=== PATIENT | female | born 1955 | race Caucasian/White ===

== ENCOUNTER 2023-09-10 14:44 | Emergency (ER) | payer MEDICARE, BC, SELFPAY ==
[2023-09-10 14:53] VITALS: BP 151/93
--- NOTE | 2023-09-10 18:31 | ED.GENMED ---
History of Present Illness
General
Chief Complaint: Headache
Source: patient and spouse
Time Seen by Provider: 09/10/23 16:30
Travel History
Have you had any contact with someone who has COVID-19?: No
Do you have any symptoms of coronavirus? Fever > 100 degrees, chills, cough, shortness of breath, sore throat, loss of taste or smell, muscle aches, or headache?: No
History of Present Illness
History of Present Illness:
68-year-old female who presents with complaint that the microchip in her neck. The patient states it sometimes swells in that area and sometimes gives her headache. She is here requesting that 'they' turn it 'down'. Patient states that she used
to work for the [employer] and it was placed many years ago. Significant other is also in the room requesting help with the microchip. They report that when people are nearby with cell phones it sometimes causes her to have loud sounds. The patient is
deaf. Patient states sometimes she gets shooting pain in the area. She states she never remembers it being implanted but was told by somebody that they were implanting microchips in [employer]. The patient states that she does not really
care that it is there except that sometimes it bothers her. She states that sometimes she can hear voices but denies that they are hallucinations.
She reports she has off-and-on headaches for more than a month
Past History
Past History
ED Past Medical History: Other (Deafness, prior cervical spine surgery)
ED Past Surgical History: Orthopedic
Phy Exam
Physical Exam
Physical Exam:
CONSTITUTIONAL Patient alert and oriented to person, place and time. Well-appearing. Vital signs reviewed.
HEAD atraumatic, normocephalic.
EYES eyelids normal to inspection, Pupils equally round and reactive to light, Extraocular muscles intact, Conjunctiva normal, Sclera normal.
NECK normal range of motion, Trachea midline, no jugular venous distention.
RESPIRATORY CHEST No respiratory distress noted, Chest expansion equal, Bilateral breath sounds clear.
CARDIOVASCULAR regular rate and rhythm, Heart sounds normal.
ABDOMEN abdomen nontender, Bowel sounds normal. No distention.
BACK normal inspection, no obvious deformities
UPPER EXTREMITY range of motion normal, Motor strength normal, no cyanosis, no edema.
LOWER EXTREMITY range of motion normal, Motor strength normal, no cyanosis, no edema.
NEURO Speech normal, No focal motor deficits, [place] coma scale 15, Memory normal, deaf but able to read lips well and communicate
SKIN skin warm, dry, and normal in color.
Course
Orders/Labs/Results
Orders:
Orders
09/10/23 16:58
Neck Soft Tissue [CR Soft Tissue Neck ] Urgent
Comment:
Reason For Exam: concern for FB, AP study please
09/10/23 18:31
CT Head W/o Iv Contrast Urgent
Comment:
Reason For Exam: OVIEDO
09/10/23 18:58
Acetaminophen [Tylenol] 1,000 mg PO NOW STA
Vital Signs
Initial and Last Documented VS:
Initial Vital Signs
Temp Pulse Resp BP Pulse Ox
98.6 F 81 18 151/93 97
09/10/23 14:53 09/10/23 14:53 09/10/23 14:53 09/10/23 14:53 09/10/23 14:53
Last Documented Vital Signs
Temp Pulse Resp BP Pulse Ox
98.6 F 77 16 176/89 97
09/10/23 14:53 09/10/23 18:48 09/10/23 18:48 09/10/23 18:48 09/10/23 18:48
MDM/Problems Addressed
MDM/Problems Addressed:
Delusions, headache
*Radiology
Radiology exam reviewed: preliminary read by ED provider ( no FB on films)
*Pulse Oximetry
Patient hypoxic: no
*Critical Care Note
Total Time (30-74mins, 75-104mins- exclusive of procedures): Not Applicable
Data Reviewed
Source: patient and significant other
Further Testing Considered But Not Given:
Consider crisis consult but patient has had the same thought for many years and seems stable and fixed in her delusion. I did recommend outpatient follow-up. Unfortunately her significant other seems to propagate the delusion as she has convinced
him of the microchip implantation. The patient was shown films but states that maybe there is a 'cover' over the chip or that 'they' are using AI to change the images
Patient Management
Escalation/DeEscalation of care consider admission/obs:
Appears well. Meningioma noted by RADS. Do not suspect playing a role in her delusion but certainly may need some follow-up. Recommended outpatient follow-up
ED Attending Note
-
Portions of this chart may have been created with voice recognition software.� Occasional wrong word or��sound alike� substitutions may have occurred due to the inherent limitations of voice recognition software.
Discharge Plan
Departure
Patient Disposition: Home (Routine Discharge)
Date of Disposition: 09/10/23
Time of Disposition: 20:13
Patient with high blood pressure during this ER visit?: Yes
Discharge Problem:
Delusion, Meningioma
Instructions: Headache, Adult (DC), BLOOD PRESSURE
Referrals:
Kraig Justice DO [Family Provider] -
Floridalma Hardy MD [Active] -
Activity Restrictions/Additional Instructions:
Meningioma
Please see your doctor next 3 to 5 days for follow-up and reevaluation. Please see neurosurgery in the next 2 weeks for follow-up and reevaluation of your CAT scan. Return immediately for changes in mentation, hearing voices, delusions or any
other concerns
Interventions
Interventions:
*Risk Screen - Suicide Last Done: 09/10/23 14:53
*General Assessment Last Done: 09/10/23 15:35
*Neglect/Abuse Screening Last Done: 09/10/23 14:53
ED- Fall Risk Assessment Last Done: 09/10/23 17:16
*ED COVID-19 Vaccine History Last Done: 09/10/23 14:53
*Nursing Disposition Last Done: 09/10/23 21:22
ED- Neurological Assessment Last Done: 09/10/23 17:16
Discharge Date and Time
Discharge Date/Time: 09/10/23 21:23
[2023-09-10 18:48] VITALS: BP 176/89
[2023-09-10] MEDS: TYLENOL 1000 MG PO (19:09)
[2023-09-10 19:12] VITALS: BMI 21.6
== END 2023-09-10 21:23 | disposition home or self-care (01) ==
LOC: EMR 14:44
PROVIDERS: EMERGENCY PHYSICIAN Emergency Medicine; FAMILY PHYSICIAN Internal Medicine
DX: F22 Delusional disorders (principal); D32.9 Benign neoplasm of meninges, unspecified; R51.9 Headache, unspecified; H91.90 Unspecified hearing loss, unspecified ear
CPT/HCPCS: 99284; 70360; 70450

== ENCOUNTER 2023-10-05 20:06 | Emergency (ER) | payer MEDICARE, BC, SELFPAY ==
[2023-10-05 20:08] VITALS: BP 173/103
[2023-10-05 20:11] VITALS: BP 173/107
[2023-10-05 20:19] VITALS: BMI 22.5
[2023-10-05 20:27] VITALS: BP 183/85
--- NOTE | 2023-10-05 20:34 | ED.GENMED ---
History of Present Illness
General
Chief Complaint: Headache
Source: patient
Time Seen by Provider: 10/05/23 20:22
Travel History
Have you had any contact with someone who has COVID-19?: No
Do you have any symptoms of coronavirus? Fever > 100 degrees, chills, cough, shortness of breath, sore throat, loss of taste or smell, muscle aches, or headache?: No
History of Present Illness
History of Present Illness:
This patient is a 68-year-old female presents emergency department with complaints of hearing a 'big sound with surrounding me', followed by headache with pain that radiates to her neck and upper chest. Patient states that this happened at around
715 tonight. Since then, the pain is much better and she describes just residual 'leftover' pain. She denies associated diaphoresis, visual changes, numbness, tingling, focal weakness, fever, chills, nausea, vomiting, abdominal pain, back pain, or
other complaints.
Past History
Past History
ED Past Medical History: Other (Deafness, prior cervical spine surgery)
ED Past Surgical History: Orthopedic
Phy Exam
Physical Exam
Physical Exam:
GENERAL: Alert , in no apparent distress
EYE: pupils equal and reactive, EOMI, no photophobia, nystagmus
NECK: Supple, no significant adenopathy, no bruit.
ENT: o/p clr, mmm.
CARDIAC: Regular rate and rhythm .
LUNGS: Clear breath sounds bilaterally, no acute respiratory distress, no wheezes/rales/rhonchi
ABDOMEN: Soft, without focal tenderness, no r/g, no cvat
NEUROLOGICAL: Alert and oriented, no focal neuro deficits, [id number] normal, motor 5 out of 5, sensory intact, cranial nerves II through XII intact with the exception of baseline deafness although patient is able to read lips quite well
SKIN: Warm and dry, skin intact.
MUSCULOSKELETAL: No edema, well perfused.
PSYCH: Normal and appropriate interaction.
Course
Orders/Labs/Results
Orders:
Orders
10/05/23 20:13
EKG [Electrocardiogram (*1)] Urgent
Reason for Study: Fatigue / Weakness
10/05/23 20:14
EKG- Treatment ONCE
10/05/23 20:22
CT Head W/o Iv Contrast Stat
Comment:
Reason For Exam: manning
10/05/23 20:45
CBC/No Diff [Complete Blood Count/No Diff] Stat
CMP [Comprehensive Metabolic Panel] Stat
10/05/23 21:55
Morphine Sulfate 4 mg IV NOW STA
10/05/23 22:04
CT Head & Neck Angio W/wo IV Urgent
Comment:
Reason For Exam: severe head/neck pain
Abnormal Lab Results
10/05/23
20:45
MPV 10.5 H fL
(7.4-10.4)
Sodium 131 L mmol/L
(135-145)
BUN 21 H mg/dl
(7-17)
Glucose 129 H mg/dl
(70-99)
10/05/23 20:45
10/05/23 20:45
Vital Signs
Initial and Last Documented VS:
Initial Vital Signs
Pulse Resp BP Pulse Ox
88 20 173/103 97
10/05/23 20:08 10/05/23 20:08 10/05/23 20:08 10/05/23 20:08
Last Documented Vital Signs
Pulse Resp BP Pulse Ox
87 30 183/85 96
10/05/23 20:30 10/05/23 20:30 10/05/23 20:27 10/05/23 20:27
*Critical Care Note
Total Time (30-74mins, 75-104mins- exclusive of procedures): Not Applicable
Update Note
Update Note:
Patient presents to the Emergency Department with
Number and Complexity of Problems Addressed at the Encounter
� Chronic conditions affecting care:
� Acute Exacerbation and/or Progression of Chronic Illness:
� Differential Diagnosis includes: But not limited to SAH, tension headache, etc.
Amount and/or Complexity of Data to be Reviewed and Analyzed
� I performed an independent evaluation of and my interpretation is:
EKG: Read by me normal sinus rhythm, no acute ischemia normal axis
CT:In the anterolateral left frontal region, extra-axial mass, which very likely represents a meningioma, unchanged from CT examination of September 10, 2023.
No evidence for associated mass effect or adjacent white matter edema.
No evidence for acute intracranial abnormality.
cta Normal appearance of the common carotid arteries, carotid bulbs, and internal carotid arteries bilaterally, with no evidence for dissection or significant narrowing.
There is no evidence for dissection of the vertebral or basilar arteries.
There is no evidence for intracranial aneurysm.
Left anterolateral frontal meningioma, as seen on earlier unenhanced CT of the head.
Xrays:
Laboratory Studies: Generally unremarkable
Other:
� Review of other/old records reveals: August 2023 patient presented the emergency department with a complaint of a microchip in her neck that sometimes swells and gives her headache. Today, patient states that today symptoms
are very similar to what she had in August.
� Clinical information was obtained by an independent historian:
� Prescriptions/Medications Considered but not given:
� Further testing considered but not performed:
Risk of Complications and/or Morbidity or Mortality of Patient Management
� Social determinants of health affecting care:
� Discussion with other providers (PCP, Hospitalists, Consultants, etc):
� Escalation of care including admission/observation vs risk of discharge considered: See above regarding prior visit for similar symptoms including loud sounds, headache, etc. The somewhat abrupt nature would make 1 consider
acute vascular process such as SAH, dissection, etc. however physical exam extremely reassuring. CT head pending.
Head CT and CTA unremarkable for acute process, no dissection noted. She does have a meningioma noted which I do not suspect accounts for her symptoms and is unchanged from prior. Status post pain medication patient is very comfortable and would
like to go home. Interestingly when reviewing her records and in speaking with the patient, she again describes feeling a loud noise and the association with her perception that she has an embedded microchip. Will discharge back to [facility]
Living given unremarkable workup here. Patient does not have other delusions etc. that would make me concerned for the need for an acute workup here in the ER
ED Attending Note
-
Portions of this chart may have been created with voice recognition software.� Occasional wrong word or��sound alike� substitutions may have occurred due to the inherent limitations of voice recognition software.
Discharge Plan
Departure
Patient Disposition: Home (Routine Discharge)
Date of Disposition: 10/05/23
Time of Disposition: 23:31
Patient with high blood pressure during this ER visit?: Yes
Condition: Good
Discharge Problem:
Headache
Instructions: Headache, Adult (DC), BLOOD PRESSURE
Prescriptions:
No Action
atorvastatin [Lipitor] 20 mg Tablet
20 mg PO DAILY
Tylenol
500 mg PO Q6H PRN (Reason: pain)
lorazepam
0.5 mg PO TID PRN (Reason: anxiety)
Referrals:
Kraig Justice, [Family Provider] - Follow up in 2-3 days
Activity Restrictions/Additional Instructions:
PLEASE FOLLOW UP WITH YOUR DOCTOR REGARDING YOUR TESTING HERE (SEE ATTACHED). IF YOU DEVELOP CHEST PAIN, TROUBLE BREATHING, NUMBNESS, TINGLING, WEAKNESS, INCREASING/NEW/PERSISTENT HEADACHE, OR OTHER WORRISOME SIGNS, GO TO THE ER IMMEDIATELY!
Interventions
Interventions:
*Nursing Disposition Last Done: 10/06/23 00:17
ED- Cardiac Assessment Last Done: 10/05/23 21:02
ED- Neurological Assessment Last Done: 10/05/23 21:02
Discharge Date and Time
Discharge Date/Time: 10/06/23 00:18
[2023-10-05 20:53] LABS: Hematocrit 40.1 % (37.0-47.0); Mean Corp Hgb Conc. 34.9 g/dL (33.0-37.0); Mean Corpuscular Hgb 30.4 pg (27.0-31.0); Mean Platelet Volume 10.5 fL (7.4-10.4); Platelet Count 212 10^3/uL (130-400); Red Blood Cell Count 4.61 10^6/uL (4.20-5.40); Red Cell Dist. Width 12.7 % (11.5-14.5); White Blood Cell Count 6.4 10^3/uL (4.8-10.8)
[2023-10-05 21:03] LABS: ALT (SGPT) 26 U/L (0-35); AST (SGOT) 24 U/L (14-36); Albumin 4.1 g/dl (3.5-5.0); Alkaline Phosphatase 118 U/L (38-126); Blood Urea Nitrogen 21 mg/dl (7-17); Calcium 9.4 mg/dl (8.4-10.2); Carbon Dioxide 28 mmol/L (22-30); Chloride 100 mmol/L (98-107); Estimated Creatinine Clearance 79 ml/min; Glucose 129 mg/dl (70-99); Sodium 131 mmol/L (135-145); Total Bilirubin 0.7 mg/dl (0.2-1.3); Total Protein 6.3 g/dl (6.3-8.2); eGFR > 60.00
[2023-10-05] MEDS: MORPHINE SULFATE 4 MG IV (21:58)
== END 2023-10-06 00:18 | disposition home or self-care (01) ==
LOC: EMR 20:06
PROVIDERS: EMERGENCY PHYSICIAN Emergency Medicine; FAMILY PHYSICIAN Internal Medicine
DX: R51.9 Headache, unspecified (principal)
CPT/HCPCS: 99284; 96374; 70450; 70496; 70498; 80053; 85027; 93005; Q9967

== ENCOUNTER → 2023-10-21 12:36 | Outpatient (REF) | payer MEDICARE, BC, SELFPAY ==
[2023-10-21 14:06] LABS: % Basophils 1.1 % (0-2); % Eosinophils 3.2 % (0-6); % Immature Granulocytes 0.2 % (0-0.5); % Lymphocytes 27.4 % (20.5-51.1); % Monocytes 13.3 % (1.7-9.3); % Neutrophils 54.8 % (42.2-75.2); Absolute Basophils 0.1 10^3/uL (0-0.2); Absolute Eosinophils 0.2 10^3/uL (0-0.7); Absolute Lymphocytes 1.5 10^3/uL (1.2-3.4); Absolute Monocytes 0.7 10^3/uL (0.1-0.6); Absolute Neutrophils 2.9 10^3/uL (1.4-6.5); Hematocrit 42.4 % (37.0-47.0); Hemoglobin 14.1 g/dL (12.0-16.0); Mean Corp Hgb Conc. 33.3 g/dL (33.0-37.0); Mean Corpuscular Hgb 30.4 pg (27.0-31.0); Mean Corpuscular Volume 91.4 fL (81.0-99.0); Mean Platelet Volume 11.2 fL (7.4-10.4); Nucleated Red Blood Cells % 0 %; Platelet Count 221 10^3/uL (130-400); Red Blood Cell Count 4.64 10^6/uL (4.20-5.40); Red Cell Dist. Width 12.9 % (11.5-14.5); White Blood Cell Count 5.3 10^3/uL (4.8-10.8)
[2023-10-21 14:27] LABS: ALT (SGPT) 26 U/L (0-35); AST (SGOT) 24 U/L (14-36); Albumin 4.3 g/dl (3.5-5.0); Alkaline Phosphatase 72 U/L (38-126); Blood Urea Nitrogen 19 mg/dl (7-17); Calcium 9.1 mg/dl (8.4-10.2); Carbon Dioxide 28 mmol/L (22-30); Chloride 96 mmol/L (98-107); Glucose 79 mg/dl (70-99); HDL Cholesterol 87 mg/dl; LDL Cholesterol, Calculated 93 mg/dl; Potassium 4.1 mmol/L (3.5-5.1); Sodium 132 mmol/L (135-145); Total Cholesterol 190 mg/dl (50-199); Total Protein 6.5 g/dl (6.3-8.2); Triglyceride 51 mg/dl (10-149); Very Low Density Lipoprotein 10 mg/dl (0-30); eGFR > 60.00
[2023-10-21 14:48] LABS: TSH Reflex To Free T4 4.94 uIU/ml (0.47-4.68)
[2023-10-21 15:01] LABS: Glycohemoglobin (HgbA1c) 5.8 % (4.0-5.6)
[2023-10-21 15:16] LABS: Free T4 1.15 ng/dl (0.78-2.19)
== END ==
LOC: OLABWIL 12:36
PROVIDERS: ATTENDING PHYSICIAN Internal Medicine
DX: Z13.6 Encounter for screening for cardiovascular disorders (principal); Z13.1 Encounter for screening for diabetes mellitus; Z68.20 Body mass index [BMI] 20.0-20.9, adult; F41.9 Anxiety disorder, unspecified; E83.10 Disorder of iron metabolism, unspecified
CPT/HCPCS: 36415; 80053; 80061; 83036; 84439; 84443; 85025

== ENCOUNTER 2023-11-05 08:46 | Emergency (ER) | payer MEDICARE, BC, SELFPAY ==
[2023-11-05] VITALS (9 sets, daily range): BP systolic 120–147; BP diastolic 68–125; BMI 21.3
[2023-11-05] MEDS: ZOFRAN 4 MG IV ×2 (09:19→15:35)
[2023-11-05] MEDS: MORPHINE SULFATE 4 MG IV (09:21)
--- NOTE | 2023-11-05 09:24 | ED.GENMED ---
History of Present Illness
<Gab Rincon, DO - Last Filed: 11/05/23 13:57>
General
Chief Complaint: Headache
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
Exam Limitations: other ([employer] Card Changer used, but continues to be difficult to get all information from patient)
Time Seen by Provider: 11/05/23 08:52
Nursing documentation reviewed up to this point in time: agreed with
Travel History
Have you had any contact with someone who has COVID-19?: No
Do you have any symptoms of coronavirus? Fever > 100 degrees, chills, cough, shortness of breath, sore throat, loss of taste or smell, muscle aches, or headache?: No
History of Present Illness
History of Present Illness:
68-year-old female presents emergency department complaining of headache with vomiting today. She feels like there is a loud noise around her. This is similar to her previous headache.
Past History
<Gab Rincon, DO - Last Filed: 11/05/23 13:57>
Past History
ED Past Medical History: Other (Deafness, prior cervical spine surgery, meningioma)
ED Past Surgical History: Orthopedic
Social History
Tobacco: Non-smoker
Alcohol: None
Drug: None
Personal:
Living: with family
Review of Systems
<Gab Rincon, DO - Last Filed: 11/05/23 13:57>
Review of Systems
Allergies reviewed?: Yes
All Other Systems: Not applicable
Constitutional: Reports no symptoms
EENT: Reports no symptoms
Respiratory: Reports no symptoms
Cardiac: Reports no symptoms
ABD/GI: Reports nausea and vomiting; Denies abdominal pain
: Reports no symptoms
Musculoskeletal: Reports no symptoms
Skin: Reports no symptoms
Neurological: Reports headache
Endocrine: Reports no symptoms
Hematologic/Lymphatic: Reports no symptoms
Psychiatric: Reports no symptoms
Phy Exam
<Gab Rincon, DO - Last Filed: 11/05/23 13:57>
Physical Exam
Physical Exam:
Physical Exam
General: no apparent distress, not acutely ill
Neck: supple. no meningeal signs. normal posterior pharynx
Heart: s1/s2 regular rate and rhythm, no murmur. equal radial
pulses.,
HEENT: Pupils equal round reactive to light, EOMI, deaf
Lungs: no acute respiratory distress. clear bilaterally
Abdomen: normal bowel sounds. not tender. no CVAT
Neuro: alert and oriented. no focal neurological deficits cranial nerves II through XII intact
Skin: no rash
Psychiatric: well kept. interactive and cooperative
Extremities: no edema. no calf tenderness. negative homans. good distal pulses
Course
<Gab Rincon, DO - Last Filed: 11/05/23 13:57>
Orders/Labs/Results
Orders:
Orders
11/05/23 09:11
Cardiac Monitoring- Treatment ONCE
IV Insert/Care/Rem.- Treatment PRN
Morphine Sulfate 4 mg IV NOW STA
Ondansetron Injectable [Zofran] 4 mg IV NOW STA
11/05/23 09:25
Complete Blood Count/With Diff Urgent
Comprehensive Metabolic Panel Urgent
11/05/23 12:54
Ketorolac [Toradol] 15 mg IV NOW STA
11/05/23 13:54
0.9% Sodium Chloride 500 ml [Nss] 500 ml IV BOLUS
Diphenhydramine [Benadryl] 25 mg IV NOW STA
Metoclopramide [Reglan] 10 mg IV NOW STA
11/05/23 15:19
HYDROmorphone [Dilaudid] 0.5 mg IV NOW STA
11/05/23 15:22
Ondansetron Injectable [Zofran] 4 mg .ROUTE .STK-MED ONE
11/05/23 15:34
Ondansetron Injectable [Zofran] 4 mg IV NOW STA
Abnormal Lab Results
11/05/23
09:25
WBC 13.7 H 10^3/uL
(4.8-10.8)
MCH 31.2 H pg
(27.0-31.0)
MPV 10.5 H fL
(7.4-10.4)
Absolute Neuts (auto) 11.9 H 10^3/uL
(1.4-6.5)
Absolute Lymphs (auto) 0.8 L 10^3/uL
(1.2-3.4)
Absolute Monos (auto) 0.9 H 10^3/uL
(0.1-0.6)
Neutrophils % 86.9 H %
(42.2-75.2)
Lymphocytes % 5.6 L %
(20.5-51.1)
Sodium 132 L mmol/L
(135-145)
Chloride 95 L mmol/L
(98-107)
BUN 23 H mg/dl
(7-17)
Glucose 113 H mg/dl
(70-99)
Total Bilirubin 1.6 H mg/dl
(0.2-1.3)
Total Protein 6.2 L g/dl
(6.3-8.2)
11/05/23 09:25
11/05/23 09:25
Vital Signs
Initial and Last Documented VS:
Initial Vital Signs
Temp Pulse Resp BP Pulse Ox
98.0 F 91 16 145/84 98
11/05/23 08:48 11/05/23 08:48 11/05/23 08:48 11/05/23 08:48 11/05/23 08:48
Last Documented Vital Signs
Temp Pulse Resp BP Pulse Ox
98.0 F 78 15 142/79 97
11/05/23 08:48 11/05/23 15:00 11/05/23 15:00 11/05/23 13:00 11/05/23 15:00
<Huan Tovar MD - Last Filed: 11/05/23 17:09>
Orders/Labs/Results
Orders:
Orders
11/05/23 09:11
Cardiac Monitoring- Treatment ONCE
IV Insert/Care/Rem.- Treatment PRN
Morphine Sulfate 4 mg IV NOW STA
Ondansetron Injectable [Zofran] 4 mg IV NOW STA
11/05/23 09:25
Complete Blood Count/With Diff Urgent
Comprehensive Metabolic Panel Urgent
11/05/23 12:54
Ketorolac [Toradol] 15 mg IV NOW STA
11/05/23 13:54
0.9% Sodium Chloride 500 ml [Nss] 500 ml IV BOLUS
Diphenhydramine [Benadryl] 25 mg IV NOW STA
Metoclopramide [Reglan] 10 mg IV NOW STA
11/05/23 15:19
HYDROmorphone [Dilaudid] 0.5 mg IV NOW STA
11/05/23 15:22
Ondansetron Injectable [Zofran] 4 mg .ROUTE .STK-MED ONE
11/05/23 15:34
Ondansetron Injectable [Zofran] 4 mg IV NOW STA
Abnormal Lab Results
11/05/23
09:25
WBC 13.7 H 10^3/uL
(4.8-10.8)
MCH 31.2 H pg
(27.0-31.0)
MPV 10.5 H fL
(7.4-10.4)
Absolute Neuts (auto) 11.9 H 10^3/uL
(1.4-6.5)
Absolute Lymphs (auto) 0.8 L 10^3/uL
(1.2-3.4)
Absolute Monos (auto) 0.9 H 10^3/uL
(0.1-0.6)
Neutrophils % 86.9 H %
(42.2-75.2)
Lymphocytes % 5.6 L %
(20.5-51.1)
Sodium 132 L mmol/L
(135-145)
Chloride 95 L mmol/L
(98-107)
BUN 23 H mg/dl
(7-17)
Glucose 113 H mg/dl
(70-99)
Total Bilirubin 1.6 H mg/dl
(0.2-1.3)
Total Protein 6.2 L g/dl
(6.3-8.2)
11/05/23 09:25
11/05/23 09:25
Vital Signs
Initial and Last Documented VS:
Initial Vital Signs
Temp Pulse Resp BP Pulse Ox
98.0 F 91 16 145/84 98
11/05/23 08:48 11/05/23 08:48 11/05/23 08:48 11/05/23 08:48 11/05/23 08:48
Last Documented Vital Signs
Temp Pulse Resp BP Pulse Ox
98.0 F 78 15 142/79 97
11/05/23 08:48 11/05/23 15:00 11/05/23 15:00 11/05/23 13:00 11/05/23 15:00
<Gab Rincon, DO - Last Filed: 11/05/23 13:57>
MDM/Problems Addressed
Differential Diagnosis Includes:
Migraine, viral syndrome
MDM/Problems Addressed:
68-year-old female with headache, nausea vomiting. Minimal improvement with morphine and Zofran. Will give another dose of IV fluids, Reglan, Benadryl, and reassess. If improved may discharge home, if patient persistent will admit for intractable
headache. Patient states there is a microchip in her neck, which has been imaged and there is no foreign body in her neck. This is a stable delusion.
Chronic conditions affecting care:
Deafness
Acute Exacerbation and/or Progression of Chronic Illness: Other (Headaches, meningioma)
<Gab Rincon DO - Last Filed: 11/05/23 13:57>
*Pulse Oximetry
Patient hypoxic: no
*EKG
Interpreted by ED Provider?: NA
*Electric Meter Tester Interpretation
Rate: Electric Meter Tester- N/A
*Critical Care Note
Total Time (30-74mins, 75-104mins- exclusive of procedures): Not Applicable
Data Reviewed
Review of Other/Old Records Reveals: Radiology Studies (Prior CT angiography no acute findings, meningioma)
<Huan Tovar MD - Last Filed: 11/05/23 17:09>
Update Note
Update Note:
Pt reports sig. improvement in symptoms after treatment. Otherwise, patient is afebrile, hemodynamically stable, and neurologically intact at time of discharge. Patient will be advised to follow-up with PCP or referred neurologist for further
evaluation and treatment.
ED Attending Note
<Gab Rincon DO - Last Filed: 11/05/23 13:57>
-
Portions of this chart may have been created with voice recognition software.� Occasional wrong word or��sound alike� substitutions may have occurred due to the inherent limitations of voice recognition software.
Discharge Plan
Departure
Patient Disposition: Home (Routine Discharge)
Date of Disposition: 11/05/23
Time of Disposition: 17:09
Patient with high blood pressure during this ER visit?: Yes
Discharge Problem:
Headache
Instructions: Migraines (DC), BLOOD PRESSURE
Prescriptions:
No Action
atorvastatin [Lipitor] 20 mg Tablet
20 mg PO DAILY
Tylenol
500 mg PO Q6H PRN (Reason: pain)
lorazepam
0.5 mg PO TID PRN (Reason: anxiety)
Referrals:
Tejas Kern MD [Active] -
UNKNOWN - PT DOES,NOT KNOW [Family Provider] -
Activity Restrictions/Additional Instructions:
As discussed, please follow-up with your primary care physician and/or referred neurologist for further evaluation and treatment.
Interventions
Interventions:
*General Assessment Last Done: 11/05/23 09:32
*Neglect/Abuse Screening Last Done: 11/05/23 09:32
*ED COVID-19 Vaccine History Last Done: 11/05/23 08:48
ED- Neurological Assessment Last Done: 11/05/23 10:39
[2023-11-05 09:40] LABS: % Basophils 0.3 % (0-2); % Eosinophils 0.7 % (0-6); % Immature Granulocytes 0.3 % (0-0.5); % Lymphocytes 5.6 % (20.5-51.1); % Monocytes 6.2 % (1.7-9.3); % Neutrophils 86.9 % (42.2-75.2); Absolute Eosinophils 0.1 10^3/uL (0-0.7); Absolute Lymphocytes 0.8 10^3/uL (1.2-3.4); Absolute Monocytes 0.9 10^3/uL (0.1-0.6); Absolute Neutrophils 11.9 10^3/uL (1.4-6.5); Hematocrit 40.4 % (37.0-47.0); Mean Corp Hgb Conc. 34.7 g/dL (33.0-37.0); Mean Corpuscular Hgb 31.2 pg (27.0-31.0); Mean Platelet Volume 10.5 fL (7.4-10.4); Nucleated Red Blood Cells % 0 %; Platelet Count 218 10^3/uL (130-400); Red Blood Cell Count 4.49 10^6/uL (4.20-5.40); White Blood Cell Count 13.7 10^3/uL (4.8-10.8)
[2023-11-05 09:50] LABS: ALT (SGPT) 28 U/L (0-35); AST (SGOT) 22 U/L (14-36); Albumin 4.1 g/dl (3.5-5.0); Alkaline Phosphatase 73 U/L (38-126); Blood Urea Nitrogen 23 mg/dl (7-17); Calcium 8.9 mg/dl (8.4-10.2); Carbon Dioxide 29 mmol/L (22-30); Chloride 95 mmol/L (98-107); Estimated Creatinine Clearance 82 ml/min; Glucose 113 mg/dl (70-99); Potassium 3.8 mmol/L (3.5-5.1); Sodium 132 mmol/L (135-145); Total Bilirubin 1.6 mg/dl (0.2-1.3); Total Protein 6.2 g/dl (6.3-8.2); eGFR > 60.00
[2023-11-05] MEDS: TORADOL 15 MG IV (13:26)
[2023-11-05] MEDS: REGLAN 10 MG IV (14:11)
[2023-11-05] MEDS: NSS 500 IV (14:11)
[2023-11-05] MEDS: BENADRYL 25 MG IV (14:13)
[2023-11-05] MEDS: DILAUDID 0.5 MG IV (15:35)
== END 2023-11-05 19:55 | disposition home or self-care (01) ==
LOC: EMR 08:46
PROVIDERS: EMERGENCY PHYSICIAN Emergency Medicine
DX: R51.9 Headache, unspecified (principal); R11.2 Nausea with vomiting, unspecified
CPT/HCPCS: 99283; 96374; 96375; 96376; 96361; 80053; 85025

== ENCOUNTER → 2023-12-26 06:34 | Day surgery (SDC) | payer MEDICARE, BC, SELFPAY | LOC: GI 06:34 | PROVIDERS: ATTENDING PHYSICIAN Internal Medicine Gastroenterology | DX: Z12.11 Encounter for screening for malignant neoplasm of colon (principal); R19.4 Change in bowel habit; K55.20 Angiodysplasia of colon without hemorrhage; K64.0 First degree hemorrhoids; D12.3 Benign neoplasm of transverse colon; D12.2 Benign neoplasm of ascending colon | CPT/HCPCS: 45385; 45381; 45380; 88305 ==

== ENCOUNTER → 2024-02-05 09:15 | Outpatient (REF) | payer MEDICARE, BC, SELFPAY ==
[2024-02-05 10:13] LABS: % Basophils 1.2 % (0-2); % Eosinophils 3.3 % (0-6); % Immature Granulocytes 0.2 % (0-0.5); % Lymphocytes 33.6 % (20.5-51.1); % Monocytes 14.4 % (1.7-9.3); % Neutrophils 47.3 % (42.2-75.2); Absolute Basophils 0.1 10^3/uL (0-0.2); Absolute Eosinophils 0.2 10^3/uL (0-0.7); Absolute Lymphocytes 1.9 10^3/uL (1.2-3.4); Absolute Monocytes 0.8 10^3/uL (0.1-0.6); Absolute Neutrophils 2.7 10^3/uL (1.4-6.5); Hematocrit 42.5 % (37.0-47.0); Hemoglobin 14.3 g/dL (12.0-16.0); Mean Corp Hgb Conc. 33.6 g/dL (33.0-37.0); Mean Corpuscular Hgb 30.4 pg (27.0-31.0); Mean Corpuscular Volume 90.4 fL (81.0-99.0); Mean Platelet Volume 10.9 fL (7.4-10.4); Nucleated Red Blood Cells % 0 %; Platelet Count 240 10^3/uL (130-400); Red Cell Dist. Width 12.7 % (11.5-14.5); White Blood Cell Count 5.7 10^3/uL (4.8-10.8)
[2024-02-05 10:19] LABS: ALT (SGPT) 25 U/L (0-35); AST (SGOT) 26 U/L (14-36); Albumin 4.7 g/dl (3.5-5.0); Alkaline Phosphatase 74 U/L (38-126); Blood Urea Nitrogen 16 mg/dl (7-17); Calcium 9.5 mg/dl (8.4-10.2); Carbon Dioxide 29 mmol/L (22-30); Chloride 98 mmol/L (98-107); Glucose 90 mg/dl (70-99); HDL Cholesterol 104 mg/dl; LDL Cholesterol, Calculated 152 mg/dl; Potassium 4.3 mmol/L (3.5-5.1); Sodium 136 mmol/L (135-145); Total Bilirubin 1.2 mg/dl (0.2-1.3); Total Cholesterol 265 mg/dl (50-199); Triglyceride 49 mg/dl (10-149); Very Low Density Lipoprotein 9 mg/dl (0-30); eGFR > 60.00
[2024-02-05 10:41] LABS: Vitamin D, 25-OH*** 49.2 ng/mL (30-80)
[2024-02-05 10:48] LABS: TSH Reflex To Free T4 4.77 uIU/ml (0.47-4.68)
[2024-02-05 11:19] LABS: Glycohemoglobin (HgbA1c) 5.6 % (4.0-5.6)
[2024-02-05 11:26] LABS: Free T4 1.07 ng/dl (0.78-2.19)
== END ==
LOC: OLABWIL 09:15
PROVIDERS: ATTENDING PHYSICIAN Internal Medicine
DX: Z13.1 Encounter for screening for diabetes mellitus (principal); Z68.20 Body mass index [BMI] 20.0-20.9, adult; E83.10 Disorder of iron metabolism, unspecified; Z13.6 Encounter for screening for cardiovascular disorders; F41.9 Anxiety disorder, unspecified; E55.9 Vitamin D deficiency, unspecified
CPT/HCPCS: 36415; 80053; 80061; 82306; 83036; 84439; 84443; 85025

== ENCOUNTER → 2024-04-06 13:52 | Outpatient (REF) | payer MEDICARE, BC, SELFPAY | LOC: WDC 13:52 | PROVIDERS: ATTENDING PHYSICIAN Internal Medicine | DX: M80.00XA Age-related osteoporosis with current pathological fracture, unspecified site, initial encounter for fracture (principal); Z12.31 Encounter for screening mammogram for malignant neoplasm of breast; M81.0 Age-related osteoporosis without current pathological fracture | CPT/HCPCS: 77063; 77067; 77080 ==

== ENCOUNTER 2024-04-23 15:11 | Emergency (ER) | payer MEDICARE, BC, SELFPAY ==
[2024-04-23 15:17] VITALS: BP 182/88
[2024-04-23 15:19] VITALS: BP 182/68
[2024-04-23 15:28] VITALS: BMI 21.9
--- NOTE | 2024-04-23 15:57 | ED.GENMED ---
History of Present Illness
General
Chief Complaint: Ear Problem
Source: patient
Exam Limitations: none
Time Seen by Provider: 04/23/24 15:33
History of Present Illness
History of Present Illness:
68-year-old female that staff presents complaining of a loud sensation around her head with discomfort in her head and neck. She has been here several times for the same. She feels as though there is a microchip in her neck that is being
programmed to a high setting. She notes a slight headache. She denies chest pain or shortness of breath. No fevers. This is not new however seem to be worse today.
Past History
Past History
ED Past Medical History: Other (Deafness, prior cervical spine surgery, meningioma)
ED Past Surgical History: Orthopedic
Social History
Tobacco: Non-smoker
Alcohol: None
Drug: None
Personal:
Living: with family
Phy Exam
Physical Exam
Physical Exam:
General: Well-appearing female no acute respiratory distress HEENT: Normocephalic pupils equal round reactive to light
Neck is supple TMs slightly obscured by cerumen portion of the TM visualized are within normal limits
Heart: Regular rate and rhythm no murmurs
Lungs: Clear no wheeze
Abd: soft, nontender
Neuro: Alert and oriented, no facial asmmetry
Course
Orders/Labs/Results
Orders:
Orders
04/23/24 15:56
Diphenhydramine [Benadryl] 25 mg IV NOW STA
Ketorolac [Toradol] 15 mg IV NOW STA
Metoclopramide [Reglan] 10 mg IV NOW STA
04/23/24 16:49
Complete Blood Count/With Diff Urgent
Comprehensive Metabolic Panel Urgent
Abnormal Lab Results
04/23/24
16:49
MPV 10.5 H fL
(7.4-10.4)
Absolute Monos (auto) 0.8 H 10^3/uL
(0.1-0.6)
Monocytes % 10.4 H %
(1.7-9.3)
04/23/24 16:49
04/23/24 16:49
Vital Signs
Initial and Last Documented VS:
Initial Vital Signs
BP Pulse Ox
182/88 98
04/23/24 15:17 04/23/24 15:17
Last Documented Vital Signs
Temp Pulse Resp BP Pulse Ox
98.0 F 90 20 143/87 96
04/23/24 15:19 04/23/24 19:11 04/23/24 19:11 04/23/24 19:11 04/23/24 19:30
MDM/Problems Addressed
Differential Diagnosis Includes:
Slight headache with a sensation of increased volume. Patient describes that she has a microchip in her neck. Reviewed prior records. This has been a common complaint of hers. She has had imaging of her neck and head including CTA. These were
negative particularly for any foreign bodies. This could be a form of a migraine she has been treated for migraine in the past and her symptoms resolved. Today we will try Reglan Benadryl Toradol. Do not think CVA.
*Critical Care Note
Total Time (30-74mins, 75-104mins- exclusive of procedures): Not Applicable
Update Note
Update Note:
Patient's headache is resolved. Please note I did use instructional systems design consultant via the language line to have this discussion. Patient does not want to kill herself however she wishes to donate her body to science. She wishes to sign consent to
be euthanized. Explained that this is a procedure we do not perform. She understood this. She will be discharged back to her facility
ED Attending Note
-
Portions of this chart may have been created with voice recognition software.� Occasional wrong word or��sound alike� substitutions may have occurred due to the inherent limitations of voice recognition software.
Discharge Plan
Departure
Patient Disposition: Home (Routine Discharge)
Date of Disposition: 04/23/24
Time of Disposition: 18:30
Patient with high blood pressure during this ER visit?: No
Discharge Problem:
Headache
Instructions: Headache, Adult ED
Prescriptions:
No Action
atorvastatin [Lipitor] 20 mg Tablet
20 mg PO DAILY
Tylenol
500 mg PO Q6H PRN (Reason: pain)
lorazepam
0.5 mg PO TID PRN (Reason: anxiety)
Referrals:
Kraig Justice DO [Family Provider] -
Activity Restrictions/Additional Instructions:
Continue current medicines. Return here for worsening symptoms otherwise follow-up with your doctor.
Interventions
Interventions:
*Risk Screen - Suicide Last Done: 04/23/24 15:19
*General Assessment Last Done: 04/23/24 15:19
*Neglect/Abuse Screening Last Done: 04/23/24 15:19
ED- Fall Risk Assessment Last Done: 04/23/24 19:22
*ED COVID-19 Vaccine History Last Done: 04/23/24 15:28
*Nursing Disposition Last Done: 04/23/24 20:41
Discharge Date and Time
Discharge Date/Time: 04/23/24 20:42
Print Language: IRISH
[2024-04-23 16:00] VITALS: BP 179/89
[2024-04-23] MEDS: REGLAN 10 MG IV (16:54)
[2024-04-23] MEDS: TORADOL 15 MG IV (16:55)
[2024-04-23] MEDS: BENADRYL 25 MG IV (16:57)
[2024-04-23 17:00] LABS: % Basophils 0.9 % (0-2); % Eosinophils 1.7 % (0-6); % Immature Granulocytes 0.2 % (0-0.5); % Lymphocytes 22.8 % (20.5-51.1); % Monocytes 10.4 % (1.7-9.3); Absolute Basophils 0.1 10^3/uL (0-0.2); Absolute Eosinophils 0.1 10^3/uL (0-0.7); Absolute Lymphocytes 1.8 10^3/uL (1.2-3.4); Absolute Monocytes 0.8 10^3/uL (0.1-0.6); Absolute Neutrophils 5.2 10^3/uL (1.4-6.5); Hematocrit 43.3 % (37.0-47.0); Hemoglobin 14.8 g/dL (12.0-16.0); Mean Corp Hgb Conc. 34.2 g/dL (33.0-37.0); Mean Corpuscular Hgb 30.5 pg (27.0-31.0); Mean Corpuscular Volume 89.1 fL (81.0-99.0); Mean Platelet Volume 10.5 fL (7.4-10.4); Nucleated Red Blood Cells % 0 %; Platelet Count 239 10^3/uL (130-400); Red Blood Cell Count 4.86 10^6/uL (4.20-5.40); Red Cell Dist. Width 12.6 % (11.5-14.5); White Blood Cell Count 8.1 10^3/uL (4.8-10.8)
[2024-04-23 17:06] VITALS: BP 192/92
[2024-04-23 17:20] LABS: ALT (SGPT) 33 U/L (0-35); AST (SGOT) 27 U/L (14-36); Albumin 4.7 g/dl (3.5-5.0); Alkaline Phosphatase 104 U/L (38-126); Blood Urea Nitrogen 16 mg/dl (7-17); Carbon Dioxide 26 mmol/L (22-30); Chloride 101 mmol/L (98-107); Estimated Creatinine Clearance 67 ml/min; Glucose 91 mg/dl (70-99); Potassium 4.4 mmol/L (3.5-5.1); Sodium 139 mmol/L (135-145); Total Protein 6.9 g/dl (6.3-8.2); eGFR > 60.00
[2024-04-23 19:08] VITALS: BP 143/87
[2024-04-23 19:11] VITALS: BP 143/87
== END 2024-04-23 20:42 | disposition home or self-care (01) ==
LOC: EMR 15:11
PROVIDERS: Physician Assistant; EMERGENCY PHYSICIAN Emergency Medicine; FAMILY PHYSICIAN Internal Medicine
DX: R51.9 Headache, unspecified (principal)
CPT/HCPCS: 99283; 96374; 96375; 80053; 85025

== ENCOUNTER 2024-05-04 16:00 | Emergency (ER) | payer MEDICARE, BC, SELFPAY ==
[2024-05-04 16:03] VITALS: BP 185/87; BMI 22.0
[2024-05-04 16:05] VITALS: BP 185/87
[2024-05-04 16:29] LABS: % Basophils 0.8 % (0-2); % Eosinophils 1.7 % (0-6); % Immature Granulocytes 0.2 % (0-0.5); % Lymphocytes 12.7 % (20.5-51.1); % Monocytes 14.4 % (1.7-9.3); % Neutrophils 70.2 % (42.2-75.2); Absolute Basophils 0.1 10^3/uL (0-0.2); Absolute Eosinophils 0.1 10^3/uL (0-0.7); Absolute Lymphocytes 0.8 10^3/uL (1.2-3.4); Absolute Monocytes 0.9 10^3/uL (0.1-0.6); Absolute Neutrophils 4.2 10^3/uL (1.4-6.5); Hematocrit 40.5 % (37.0-47.0); Hemoglobin 13.8 g/dL (12.0-16.0); Mean Corp Hgb Conc. 34.1 g/dL (33.0-37.0); Mean Corpuscular Hgb 30.5 pg (27.0-31.0); Mean Corpuscular Volume 89.4 fL (81.0-99.0); Mean Platelet Volume 10.7 fL (7.4-10.4); Nucleated Red Blood Cells % 0 %; Platelet Count 197 10^3/uL (130-400); Red Blood Cell Count 4.53 10^6/uL (4.20-5.40); Red Cell Dist. Width 12.4 % (11.5-14.5); White Blood Cell Count 5.9 10^3/uL (4.8-10.8)
[2024-05-04 16:44] LABS: ALT (SGPT) 33 U/L (0-35); AST (SGOT) 27 U/L (14-36); Albumin 4.3 g/dl (3.5-5.0); Alkaline Phosphatase 94 U/L (38-126); Blood Urea Nitrogen 17 mg/dl (7-17); Calcium 9.2 mg/dl (8.4-10.2); Carbon Dioxide 29 mmol/L (22-30); Chloride 97 mmol/L (98-107); Estimated Creatinine Clearance 79 ml/min; Glucose 122 mg/dl (70-99); Potassium 4.6 mmol/L (3.5-5.1); Sodium 137 mmol/L (135-145); Total Bilirubin 0.9 mg/dl (0.2-1.3); Total Protein 6.4 g/dl (6.3-8.2); eGFR > 60.00
[2024-05-04 17:00] VITALS: BP 186/96
--- NOTE | 2024-05-04 17:21 | ED.GENMED ---
History of Present Illness
General
Chief Complaint: Headache
Source: patient
Time Seen by Provider: 05/04/24 16:37
History of Present Illness
History of Present Illness:
abap developer used to obtain history.
Patient complaining of headache. Patient also states she senses a loud sound in her ears. She believes this is due to a microchip that has been implanted in her body. She believes her actually several microchips planted different parts of her
body. Someone is controlling these microchips causing her to have a headache. This is a complaint the patient is at the previous visits. She has nausea but no vomiting. No focal weakness numbness or tingling.
Past History
Past History
ED Past Medical History: Other (Deafness, prior cervical spine surgery, meningioma)
ED Past Surgical History: Orthopedic
Social History
Tobacco: Non-smoker
Alcohol: None
Drug: None
Personal:
Living: with family
Phy Exam
Physical Exam
Physical Exam:
General: Awake, Alert, appears uncomfortable from head
Vitals: unremarkable
Head: Atraumatic
Eyes: Pupils equal, EOMI
Throat: Airway intact, no exudates
Neck: Trachea midline, no nuchal rigidity
Lungs: Clear and equal b/l
Heart: Regular rate, no murmurs
Abd: Soft, Nontender, No pulsatile mass
Neuro: Cranial nerves intact, muscle strength equal bilaterally
Skin: Warm, dry, no rash
Extremities: pulses equal b/l, no edema
Course
Orders/Labs/Results
Orders:
Orders
05/04/24 16:13
Complete Blood Count/With Diff Urgent
Comprehensive Metabolic Panel Urgent
05/04/24 17:17
Diphenhydramine [Benadryl] 25 mg IV NOW STA
Ketorolac [Toradol] 15 mg IV NOW STA
Metoclopramide [Reglan] 10 mg IV NOW STA
05/04/24 19:34
Acetaminophen 1000MG/100Ml [Ofirmev] 1,000 mg in 100 ml IV ONCE
Acetaminophen IV Indication:: ED Narcotic Naive Pt-ONCE
Abnormal Lab Results
05/04/24
16:13
MPV 10.7 H fL
(7.4-10.4)
Absolute Lymphs (auto) 0.8 L 10^3/uL
(1.2-3.4)
Absolute Monos (auto) 0.9 H 10^3/uL
(0.1-0.6)
Lymphocytes % 12.7 L %
(20.5-51.1)
Monocytes % 14.4 H %
(1.7-9.3)
Chloride 97 L mmol/L
(98-107)
Glucose 122 H mg/dl
(70-99)
05/04/24 16:13
05/04/24 16:13
Vital Signs
Initial and Last Documented VS:
Initial Vital Signs
Temp Pulse Resp BP Pulse Ox
98.1 F 84 16 185/87 97
05/04/24 16:03 05/04/24 16:03 05/04/24 16:03 05/04/24 16:03 05/04/24 16:03
Last Documented Vital Signs
Temp Pulse Resp BP Pulse Ox
98.1 F 79 10 140/58 94
05/04/24 16:03 05/04/24 20:30 05/04/24 16:07 05/04/24 19:00 05/04/24 20:30
MDM/Problems Addressed
Differential Diagnosis Includes:
migraine, tension headache,
MDM/Problems Addressed:
Pt has non-focal exam. She is convinced that she has a microchip in her neck that is controlled by someone else that causes the headache. When I pointed out she has had imaging of her head and neck here that did not show any FB she indicates that
it is too small to be seen and they are also in other places. Pt treated for migraine with some improvement. Stable for discharge home. Though delusional pt appears clean, well cared for. Not suicidal or homicidal. Pt stable for d/c back to her
facility.
*Pulse Oximetry
Patient hypoxic: no
*Critical Care Note
Total Time (30-74mins, 75-104mins- exclusive of procedures): Not Applicable
ED Attending Note
-
Portions of this chart may have been created with voice recognition software.� Occasional wrong word or��sound alike� substitutions may have occurred due to the inherent limitations of voice recognition software.
Discharge Plan
Departure
Patient Disposition: Home (Routine Discharge)
Date of Disposition: 05/04/24
Time of Disposition: 20:29
Patient with high blood pressure during this ER visit?: No
Condition: Good
Discharge Problem:
Headache
Instructions: Migraines (DC)
Prescriptions:
No Action
atorvastatin [Lipitor] 20 mg Tablet
20 mg PO DAILY
Tylenol
500 mg PO Q6H PRN (Reason: pain)
lorazepam
0.5 mg PO TID PRN (Reason: anxiety)
Referrals:
Kraig Justice DO [Family Provider] -
Shayan Antunez MD [Active] -
Activity Restrictions/Additional Instructions:
I believe your headaches are from migraine headaches
Interventions
Interventions:
*Risk Screen - Suicide Last Done: 05/04/24 16:03
*General Assessment Last Done: 05/04/24 16:03
*Neglect/Abuse Screening Last Done: 05/04/24 16:03
ED- Fall Risk Assessment Last Done: 05/04/24 16:09
*ED COVID-19 Vaccine History Last Done: 05/04/24 16:03
*Nursing Disposition Last Done: 05/04/24 21:06
ED- Neurological Assessment Last Done: 05/04/24 16:09
Discharge Date and Time
Discharge Date/Time: 05/04/24 21:31
Print Language: PORTUGUESE
[2024-05-04] MEDS: REGLAN 10 MG IV (17:26)
[2024-05-04] MEDS: TORADOL 15 MG IV (17:26)
[2024-05-04] MEDS: BENADRYL 25 MG IV (17:27)
[2024-05-04 18:00] VITALS: BP 154/76
[2024-05-04 19:00] VITALS: BP 140/58
[2024-05-04] MEDS: OFIRMEV 100 IV (19:37)
== END 2024-05-04 21:31 | disposition home or self-care (01) ==
LOC: EMR 16:00
PROVIDERS: Emergency Medicine; EMERGENCY PHYSICIAN Emergency Medicine; FAMILY PHYSICIAN Internal Medicine
DX: R51.9 Headache, unspecified (principal); F22 Delusional disorders; R11.0 Nausea; H91.90 Unspecified hearing loss, unspecified ear; Z88.0 Allergy status to penicillin; Z88.2 Allergy status to sulfonamides
CPT/HCPCS: 99284; 96374; 96375 ×3; 80053; 85025

== ENCOUNTER 2024-07-06 19:04 | Emergency (ER) | payer MEDICARE, BC, SELFPAY ==
[2024-07-06 19:07] VITALS: BP 173/107
--- NOTE | 2024-07-06 19:41 | ED.GENMED ---
History of Present Illness
General
Chief Complaint: Psychiatric Problem
Source: patient and family (Brother who is at the bedside)
Exam Limitations: none
Time Seen by Provider: 07/06/24 19:17
Nursing documentation reviewed up to this point in time: agreed with
History of Present Illness
History of Present Illness:
The patient is a pleasant 69-year-old female who arrives from [facility] with complaints of loud noises and voices making her feel disturbed and threatening. 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 Her brother who is
at the bedside reports that the patient has been experiencing these auditory hallucinations for over 10 years and continuously attributes these voices being caused from a microchip that had been implanted in her neck many years ago. Patient reports
that she hears these voices and noises every day for years. At times they become louder and more disturbing. The patient reports that 2 nights ago she was unable to sleep due to all the noise from her head. She reports that at 4:00 in the morning
she walked to the police and asked for help and also asked to sleep on a bench in the park [place]. The patient eventually made it back home to [place] with the police. The patient is to a man that reportedly, according to the patient's
brother, assures the patient that the voices are real. Her brother reports that this has been an ongoing chronic problem and that patient may have been admitted to a psychiatric hospital many years ago but he is unaware of a more recent admission.
Patient reports she only takes lorazepam and Lipitor. She denies drugs and alcohol and cigarettes.
Patient reports that she does think about overdosing to end her life. Patient admits that she has a history of overdosing on medication to kill herself.
Past History
Past History
ED Past Medical History: Hypercholesterolemia, Psychiatric and Other (Deafness, prior cervical spine surgery, meningioma)
ED Past Surgical History: Orthopedic
Social History
Tobacco: Non-smoker
Alcohol: None
Drug: None
Personal:
Living: with family
Employment: Retired
Family History
Family History: Other
Review of Systems
Review of Systems
Allergies reviewed?: Yes
All Other Systems: ROS reviewed and negative except as documented in HPI and ROS
Constitutional: Reports no symptoms
EENT: Reports no symptoms
Respiratory: Reports no symptoms
Cardiac: Reports no symptoms
ABD/GI: Reports no symptoms
: Reports no symptoms
Musculoskeletal: Reports neck pain (Neck pain from the microchip along the left side of her neck)
Skin: Reports no symptoms
Neurological: Reports headache
Endocrine: Reports no symptoms
Hematologic/Lymphatic: Reports no symptoms
Psychiatric: Reports suicidal
Phy Exam
Physical Exam
Physical Exam:
Physical Exam
General Patient appears anxious but is cooperative and answering all questions. Patient is able to read lips and speak, however, her articulation is muffled and it is difficult to understand her
Neck: supple. no meningeal signs. normal psoterior pharynx
Heart: s1/s2 regular rate and rhythm, no murmur. equal radial pulses.
Lungs: no acute respiratory distress. clear bilaterally
Abdomen: normal bowel sounds. not tender. no CVAT
Neuro: alert and orientedx3. no focal neurological deficits
Skin: no rash
Psychiatric: well kept. interactive and cooperative
Extremities: no edema. no calf tenderness. negative homans. good distal pulses
Course
Orders/Labs/Results
Orders:
Orders
07/06/24 19:15
1:1 Observation - Suicide/ Violent Behavior As Directed
Crisis Consult Urgent
Reason for Consult: SI
07/06/24 19:45
Clonidine [Catapres] 0.2 mg PO NOW STA
07/06/24 19:46
Urine Drug Abuse Screen Urgent
07/06/24 19:55
Alcohol Urgent
Complete Blood Count/With Diff Urgent
Comprehensive Metabolic Panel Urgent
Abnormal Lab Results
07/06/24
19:55
MPV 10.6 H fL
(7.4-10.4)
Absolute Monos (auto) 1.0 H 10^3/uL
(0.1-0.6)
Monocytes % 13.1 H %
(1.7-9.3)
BUN 18 H mg/dl
(7-17)
Glucose 100 H mg/dl
(70-99)
07/06/24 19:55
07/06/24 19:55
Vital Signs
Initial and Last Documented VS:
Initial Vital Signs
Temp Pulse Resp BP Pulse Ox
98.4 F 93 19 173/107 96
07/06/24 19:07 07/06/24 19:07 07/06/24 19:07 07/06/24 19:07 07/06/24 19:07
Last Documented Vital Signs
Temp Pulse Resp BP Pulse Ox
98.4 F 82 18 181/106 96
07/06/24 19:07 07/06/24 19:56 07/06/24 19:44 07/06/24 19:56 07/06/24 19:07
MDM/Problems Addressed
Differential Diagnosis Includes:
Acute on chronic psychosis, suicidal ideations, hypertensive encephalopathy
MDM/Problems Addressed:
Patient presents with acute on chronic psychotic thoughts of microchip in her neck causing voices and noises to be transmitted into her head
Chronic conditions affecting care: Psychiatric illness
Acute Exacerbation and/or Progression of Chronic Illness:
Patient likely has acute exacerbation of poorly controlled chronic psychotic thoughts and auditory hallucinations. Patient is also acutely hypertensive. She does appear anxious and upset. This may be contributing to her hypertension.
Acute Exacerbation and/or Progression of Chronic Illness: HTN
*Pulse Oximetry
Patient hypoxic: no
*EKG
Interpreted by ED Provider?: NA
*Sponge Buffer Interpretation
Rate: Sponge Buffer- N/A
*Critical Care Note
Total Time (30-74mins, 75-104mins- exclusive of procedures): Not Applicable
Data Reviewed
Review of Other/Old Records Reveals: Radiology Studies (Patient had a CTA done of her head and neck that was normal from September 2023)
Source: patient and family (Brother who is at the bedside)
Patient Management
Discussion with other providers: Hospitalist and Other ([place] hand bindery assembly worker who is at the bedside evaluating the patient)
Escalation/DeEscalation of care consider admission/obs:
Patient is agreeable to inpatient psychiatric hospitalization. She is calm and cooperative and feels safe here at [facility].
ED Attending Note
-
Portions of this chart may have been created with voice recognition software.� Occasional wrong word or��sound alike� substitutions may have occurred due to the inherent limitations of voice recognition software.
Discharge Plan
Departure
Patient Disposition: Psych Facility
Date of Disposition: 07/06/24
Time of Disposition: 20:37
Patient Status:: 201
Patient with high blood pressure during this ER visit?: Yes
Condition: Fair
Covid-19: Not Applicable
Discharge Problem:
Acute exacerbation of psychosis, Suicidal ideation
Prescriptions:
No Action
atorvastatin [Lipitor] 20 mg Tablet
20 mg PO DAILY
Tylenol
500 mg PO Q6H PRN (Reason: pain)
lorazepam
0.5 mg PO TID PRN (Reason: anxiety)
Referrals:
UNKNOWN - PT NOT,INTERVIEWE [Family Provider] -
Interventions
Interventions:
*Risk Screen - Suicide Last Done: 07/06/24 19:07
*General Assessment Last Done: 07/06/24 19:07
*Neglect/Abuse Screening Last Done: 07/06/24 19:07
ED- Fall Risk Assessment Last Done: 07/06/24 19:31
ED-Psychological Assessment Last Done: 07/06/24 19:31
Discharge Date and Time
Print Language: BULGARIAN
[2024-07-06 19:44] VITALS: BP 181/106
[2024-07-06] MEDS: CATAPRES 0.2 MG PO (19:56)
[2024-07-06 20:07] LABS: % Basophils 0.9 % (0-2); % Eosinophils 2.7 % (0-6); % Immature Granulocytes 0.4 % (0-0.5); % Lymphocytes 21.5 % (20.5-51.1); % Monocytes 13.1 % (1.7-9.3); % Neutrophils 61.4 % (42.2-75.2); Absolute Basophils 0.1 10^3/uL (0-0.2); Absolute Eosinophils 0.2 10^3/uL (0-0.7); Absolute Lymphocytes 1.6 10^3/uL (1.2-3.4); Absolute Neutrophils 4.7 10^3/uL (1.4-6.5); Hematocrit 41.7 % (37.0-47.0); Hemoglobin 13.8 g/dL (12.0-16.0); Mean Corp Hgb Conc. 33.1 g/dL (33.0-37.0); Mean Corpuscular Hgb 30.3 pg (27.0-31.0); Mean Corpuscular Volume 91.4 fL (81.0-99.0); Mean Platelet Volume 10.6 fL (7.4-10.4); Nucleated Red Blood Cells % 0 %; Platelet Count 215 10^3/uL (130-400); Red Blood Cell Count 4.56 10^6/uL (4.20-5.40); Red Cell Dist. Width 12.9 % (11.5-14.5); White Blood Cell Count 7.6 10^3/uL (4.8-10.8)
[2024-07-06 20:19] LABS: ALT (SGPT) 26 U/L (0-35); AST (SGOT) 22 U/L (14-36); Albumin 4.5 g/dl (3.5-5.0); Alkaline Phosphatase 71 U/L (38-126); Blood Urea Nitrogen 18 mg/dl (7-17); Calcium 9.8 mg/dl (8.4-10.2); Carbon Dioxide 27 mmol/L (22-30); Chloride 100 mmol/L (98-107); Glucose 100 mg/dl (70-99); Potassium 4.4 mmol/L (3.5-5.1); Sodium 139 mmol/L (135-145); Total Bilirubin 0.5 mg/dl (0.2-1.3); Total Protein 6.8 g/dl (6.3-8.2); eGFR > 60.00
[2024-07-06 20:30] LABS: Alcohol None Detected
[2024-07-06 20:54] VITALS: BP 132/86
[2024-07-06 21:23] LABS: Amphetamines Negative (Negative); Barbiturates Negative (Negative); Benzodiazepines Positive (Negative); Buprenorphine Negative (Negative); Cocaine Negative (Negative); Marijuana Negative (Negative); Methadone Negative (Negative); Methamphetamines Negative (Negative); Opiates Negative (Negative); Phencyclidine Negative (Negative); Tricyclic Antidepressants Negative (Negative)
[2024-07-06 21:40] LABS: Fentanyl, Urine Negative (Negative)
[2024-07-07] MEDS: TYLENOL 650 MG PO (05:16)
--- NOTE | 2024-07-07 07:27 | ED.CRISIS ---
ED Crisis Note
ED Crisis Note
Subjective:
No new issues
Objective:
Overall improved after Clonidine given for hypertension
Assessment/Plan:
Currently awaiting placement at [facility]
[2024-07-07 09:25] VITALS: BP 165/82
== END 2024-07-07 10:20 ==
LOC: EMR 19:04
PROVIDERS: Emergency Medicine; EMERGENCY PHYSICIAN Emergency Medicine
DX: F29 Unspecified psychosis not due to a substance or known physiological condition (principal); R45.851 Suicidal ideations; H91.90 Unspecified hearing loss, unspecified ear; E78.00 Pure hypercholesterolemia, unspecified; I10 Essential (primary) hypertension
CPT/HCPCS: 99283; 80053; 80306; 80307; 82077; 85025